=== PATIENT | female | born 1955 | race Caucasian/White ===

== ENCOUNTER 2018-08-16 04:19 | Emergency (ER) | payer BC ==
[2018-08-16 05:23] LABS: WHITE BLOOD COUNT 7.6 10^3/ul (4.8-10.8)
[2018-08-16 05:23] LABS: ADD MAN DIFF? NO; BASOPHILS % 0.5 % (0.0-2.0); EOSINOPHILS # 0.1 10^3/ul (0.0-0.5); EOSINOPHILS % 1.6 % (0.0-7.0); HEMATOCRIT 40.4 % (37.0-47.0); HEMOGLOBIN 13.4 g/dl (12.0-16.0); LYMPHOCYTES # 0.7 10^3/ul (0.8-2.9); LYMPHOCYTES % 9.3 % (15.0-51.0); MEAN CORPUSCULAR HEMOGLOBIN 30.3 pg (29.0-33.0); MEAN CORPUSCULAR HGB CONC 33.2 g/dl (32.0-37.0); MEAN CORPUSCULAR VOLUME 91.4 fl (82.0-101.0); MEAN PLATELET VOLUME 10.4 fl (7.4-10.4); MONOCYTE # 0.4 10^3/ul (0.3-0.9); MONOCYTES % 4.8 % (0.0-11.0); NEUTROPHIL # 6.3 10^3/ul (1.6-7.5); NEUTROPHILS % 83.4 % (39.0-77.0); PLATELET COUNT 290 10^3/UL (140-415); RED BLOOD COUNT 4.42 10^6/ul (4.20-5.40); RED CELL DISTRIBUTION WIDTH 12.8 % (11.5-14.5)
[2018-08-16 05:47] LABS: ALANINE AMINOTRANSFERASE 8 IU/L (13-69); ALBUMIN/GLOBULIN RATIO 1.29; ALKALINE PHOSPHATASE 58 IU/L (42-121); ANION GAP 10 (5-13); ASPARTATE AMINO TRANSFERASE 19 IU/L (15-46); BILIRUBIN,INDIRECT 0.5 mg/dl (0-1.1); BILIRUBIN,TOTAL 0.5 mg/dl (0.2-1.3); BLOOD UREA NITROGEN 10 mg/dl (7-20); CALCIUM 9.2 mg/dl (8.4-10.2); CARBON DIOXIDE 28 mmol/L (21-31); CHLORIDE 104 mmol/L (97-110); CREATININE 0.72 mg/dl (0.44-1.00); Estimated GFR > 60 mL/min (>60); GLUCOSE 119 mg/dl (70-220); LIPASE 75 U/L (23-300); POTASSIUM 4.2 mmol/L (3.5-5.1); SODIUM 142 mmol/L (135-144); TOTAL PROTEIN 7.1 g/dl (6.1-8.1)
[2018-08-16] MEDS: SOD CHLORIDE 0.9% 500 ML IV (05:52)
[2018-08-16] MEDS: morphine 4 MG/ML VIAL IV (06:35)
[2018-08-16] MEDS: ONDANSETRON 4 MG INJ IV (06:35)
[2018-08-16 06:39] LABS: ADD UMIC YES; UR ASCORBIC ACID NEGATIVE (NEGATIVE); UR BILIRUBIN (Dip) NEGATIVE (NEGATIVE); UR BLOOD (Dip) 1+ mg/dL (NEGATIVE); UR CLARITY SLIGHTLY CLOUDY (CLEAR); UR COLOR YELLOW (YELLOW); UR GLUCOSE (Dip) NEGATIVE (NEGATIVE); UR KETONES (Dip) NEGATIVE (NEGATIVE); UR LEUKOCYTE ESTERASE (Dip) NEGATIVE Leu/ul (NEGATIVE); UR MUCUS MANY /HPF (NONE SEEN); UR NITRITE (Dip) NEGATIVE (NEGATIVE); UR RBC 1 /HPF (0-5); UR SPECIFIC GRAVITY (Dip) 1.015 (1.003-1.030); UR SQUAMOUS EPITHELIAL CELL FEW /HPF (FEW); UR TOTAL PROTEIN (Dip) NEGATIVE (NEGATIVE); UR UROBILINOGEN (Dip) NEGATIVE (NEGATIVE); UR WBC 1 /HPF (0-5)
[2018-08-16 06:47] LABS: AMYLASE 72 U/L (11-123)
[2018-08-16 07:15] LABS: TROPONIN-I < 0.012 ng/ml (0.000-0.120)
[2018-08-16] MEDS: KETOROLAC 30 MG INJ IV (07:32)
[2018-08-16] MEDS: CIPROFLOXACIN 500 MG TAB PO (07:32)
[2018-08-16] MEDS: metroNIDAZOLE 500 MG TAB PO (07:44)
== END 2018-08-16 07:56 | disposition home or self-care (01) ==
LOC: E/R 04:19
DX: K52.9 Noninfective gastroenteritis and colitis, unspecified (principal)
CPT/HCPCS: 36415; 74176; 80053; 81001; 82150; 83690; 84484; 85025; 87086; 96374; 96375; 99285-25

== ENCOUNTER 2018-09-04 08:04 | Inpatient (IN) | payer BC ==
[2018-09-04] MEDS: ONDANSETRON 4 MG INJ IV (09:53)
[2018-09-04] MEDS: KETOROLAC 15 MG INJ IV (09:53)
[2018-09-04] MEDS: BELLADONNA/PHENOBARBITAL TAB PO (09:53)
[2018-09-04] MEDS: LIDOCAINE/MYLANTA 40 ML BTL PO (09:53)
[2018-09-04] MEDS: SOD CHLORIDE 0.9% 1,000 ML IV (09:53)
[2018-09-04 10:10] LABS: ADD MAN DIFF? NO
[2018-09-04 10:17] LABS: ADD UMIC NO; UR ASCORBIC ACID NEGATIVE (NEGATIVE); UR BILIRUBIN (Dip) NEGATIVE (NEGATIVE); UR BLOOD (Dip) NEGATIVE (NEGATIVE); UR CLARITY CLEAR (CLEAR); UR COLOR YELLOW (YELLOW); UR GLUCOSE (Dip) NEGATIVE (NEGATIVE); UR KETONES (Dip) TRACE mg/dL (NEGATIVE); UR LEUKOCYTE ESTERASE (Dip) NEGATIVE Leu/ul (NEGATIVE); UR NITRITE (Dip) NEGATIVE (NEGATIVE); UR SPECIFIC GRAVITY (Dip) 1.012 (1.003-1.030); UR TOTAL PROTEIN (Dip) NEGATIVE (NEGATIVE); UR UROBILINOGEN (Dip) NEGATIVE (NEGATIVE)
[2018-09-04 10:19] LABS: BASOPHIL # 0.1 10^3/ul (0.0-0.1); BASOPHILS % 1.1 % (0.0-2.0); EOSINOPHILS # 0.1 10^3/ul (0.0-0.5); EOSINOPHILS % 1.7 % (0.0-7.0); HEMATOCRIT 39.3 % (37.0-47.0); LYMPHOCYTES % 18.3 % (15.0-51.0); MEAN CORPUSCULAR HGB CONC 33.1 g/dl (32.0-37.0); MEAN CORPUSCULAR VOLUME 90.6 fl (82.0-101.0); MEAN PLATELET VOLUME 10.3 fl (7.4-10.4); MONOCYTE # 0.3 10^3/ul (0.3-0.9); MONOCYTES % 6.1 % (0.0-11.0); NEUTROPHIL # 3.9 10^3/ul (1.6-7.5); NEUTROPHILS % 72.6 % (39.0-77.0); PLATELET COUNT 303 10^3/UL (140-415); RED BLOOD COUNT 4.34 10^6/ul (4.20-5.40); RED CELL DISTRIBUTION WIDTH 13.1 % (11.5-14.5)
[2018-09-04 10:19] LABS: WHITE BLOOD COUNT 5.4 10^3/ul (4.8-10.8)
[2018-09-04 10:35] LABS: INR 0.93; PROTIME 12.6 Sec (11.9-14.9)
[2018-09-04 10:36] LABS: PARTIAL THROMBOPLASTIN TIME 31.2 Sec (23.0-35.0)
[2018-09-04 10:50] LABS: ALANINE AMINOTRANSFERASE 19 IU/L (13-69); ALBUMIN 4.5 g/dl (3.3-4.9); ALBUMIN/GLOBULIN RATIO 1.73; ALKALINE PHOSPHATASE 59 IU/L (42-121); ANION GAP 11 (5-13); ASPARTATE AMINO TRANSFERASE 19 IU/L (15-46); BILIRUBIN,INDIRECT 0.5 mg/dl (0-1.1); BILIRUBIN,TOTAL 0.5 mg/dl (0.2-1.3); BLOOD UREA NITROGEN 11 mg/dl (7-20); CALCIUM 9.9 mg/dl (8.4-10.2); CARBON DIOXIDE 27 mmol/L (21-31); CHLORIDE 100 mmol/L (97-110); CREATININE 0.73 mg/dl (0.44-1.00); Estimated GFR > 60 mL/min (>60); GLUCOSE 101 mg/dl (70-220); LIPASE 121 U/L (23-300); POTASSIUM 4.8 mmol/L (3.5-5.1); SODIUM 138 mmol/L (135-144); TOTAL PROTEIN 7.1 g/dl (6.1-8.1)
[2018-09-04 11:02] LABS: TROPONIN-I < 0.012 ng/ml (0.000-0.120)
[2018-09-04] MEDS: IOHEXOL 300MG/ML 150 ML BTL (11:40)
[2018-09-04] MEDS: SOD CHLORIDE 0.9% 100 ML (12:03)
[2018-09-04] MEDS ORDERED: DOCUSATE SODIUM 100 MG CAP PO (15:30)
[2018-09-04] MEDS ORDERED: MAGNESIUM HYDROXIDE 30ML CUP PO (15:30)
[2018-09-04] MEDS ORDERED: ZOLPIDEM 5 MG TAB PO (15:30)
[2018-09-04] MEDS ORDERED: NACL 0.9% 3 ML SYG IV (15:30)
[2018-09-04] MEDS ORDERED: morphine 2 MG INJ IV (15:30)
[2018-09-04] MEDS ORDERED: HYDROCODONE/APAP (5/325) TAB PO (15:30)
[2018-09-04] MEDS: NS + KCL 20 MEQ 1,000 ML IV (17:06)
[2018-09-04] MEDS: PIPER-TAZO 3.375 GM IV (PMX) 100 ML IVPB ×2 (18:27→23:21)
[2018-09-05] MEDS: NS + KCL 20 MEQ 1,000 ML IV ×4 (04:18→23:13)
[2018-09-05 05:53] LABS: ADD MAN DIFF? NO
[2018-09-05 05:56] LABS: BASOPHIL # 0.1 10^3/ul (0.0-0.1); EOSINOPHILS # 0.2 10^3/ul (0.0-0.5); EOSINOPHILS % 4.3 % (0.0-7.0); HEMATOCRIT 35.2 % (37.0-47.0); HEMOGLOBIN 11.6 g/dl (12.0-16.0); LYMPHOCYTES # 1.1 10^3/ul (0.8-2.9); MEAN CORPUSCULAR HEMOGLOBIN 30.3 pg (29.0-33.0); MEAN CORPUSCULAR VOLUME 91.9 fl (82.0-101.0); MEAN PLATELET VOLUME 10.5 fl (7.4-10.4); MONOCYTE # 0.3 10^3/ul (0.3-0.9); MONOCYTES % 8.4 % (0.0-11.0); NEUTROPHIL # 1.8 10^3/ul (1.6-7.5); PLATELET COUNT 232 10^3/UL (140-415); RED BLOOD COUNT 3.83 10^6/ul (4.20-5.40); RED CELL DISTRIBUTION WIDTH 13.1 % (11.5-14.5)
[2018-09-05 05:56] LABS: WHITE BLOOD COUNT 3.5 10^3/ul (4.8-10.8)
[2018-09-05] MEDS: PIPER-TAZO 3.375 GM IV (PMX) 100 ML IVPB ×4 (06:05→23:13)
[2018-09-05] MEDS: LEVOTHYROXINE 75 MCG TAB PO (06:20)
[2018-09-05 07:38] LABS: ANION GAP 8 (5-13); BLOOD UREA NITROGEN 9 mg/dl (7-20); CALCIUM 8.9 mg/dl (8.4-10.2); CARBON DIOXIDE 26 mmol/L (21-31); CHLORIDE 104 mmol/L (97-110); CREATININE 0.88 mg/dl (0.44-1.00); Estimated GFR > 60 mL/min (>60); GLUCOSE 88 mg/dl (70-220); MAGNESIUM 2.3 mg/dl (1.7-2.5); PHOSPHORUS 4.4 mg/dl (2.5-4.9); POTASSIUM 4.4 mmol/L (3.5-5.1); SODIUM 138 mmol/L (135-144)
[2018-09-05 09:15] LABS: HEMOGLOBIN A1C 5.4 % (0-5.9)
[2018-09-05] MEDS ORDERED: VITAMIN A & D 5 GM OINT PACKET TOP (12:14)
[2018-09-05] MEDS: ACETAMINOPHEN 325 MG TAB PO (12:15)
[2018-09-05] MEDS: IOHEXOL 14.3 MG(I)/ML (ADULT) BTL PO (18:00)
[2018-09-05] MEDS: morphine LIQ (10 MG/5 ML) CUP PO (18:16)
[2018-09-05] MEDS: ONDANSETRON 4 MG INJ IV (18:17)
[2018-09-06] MEDS: NS + KCL 20 MEQ 1,000 ML IV (03:44)
[2018-09-06] MEDS: PIPER-TAZO 3.375 GM IV (PMX) 100 ML IVPB ×3 (05:26→17:19)
[2018-09-06] MEDS: LEVOTHYROXINE 75 MCG TAB PO (06:44)
[2018-09-06] MEDS: SOD CHLORIDE 0.9% 100 ML (09:30)
[2018-09-06] MEDS: IOHEXOL 300MG/ML 30 ML BTL (09:30)
[2018-09-06] MEDS ORDERED: NA PHOSPHATE/BIPHOS 133 ML ENEMA PR (12:30)
[2018-09-06] MEDS: SENNA TAB PO ×2 (12:56→21:00)
[2018-09-06] MEDS: DOCUSATE SODIUM 100 MG CAP PO ×2 (12:56→21:00)
[2018-09-07] MEDS: PIPER-TAZO 3.375 GM IV (PMX) 100 ML IVPB ×5 (00:02→23:33)
[2018-09-07] MEDS: LEVOTHYROXINE 75 MCG TAB PO (06:32)
[2018-09-07] MEDS: POLYETHYLENE GLYCOL 17 GM PACKET PO (08:48)
[2018-09-07] MEDS: SENNA TAB PO (08:48)
[2018-09-07] MEDS: DOCUSATE SODIUM 100 MG CAP PO (08:48)
[2018-09-07 08:56] LABS: ADD MAN DIFF? NO
[2018-09-07 09:00] LABS: BASOPHIL # 0.1 10^3/ul (0.0-0.1); BASOPHILS % 1.5 % (0.0-2.0); EOSINOPHILS # 0.1 10^3/ul (0.0-0.5); EOSINOPHILS % 3.6 % (0.0-7.0); HEMATOCRIT 36.1 % (37.0-47.0); LYMPHOCYTES % 25.7 % (15.0-51.0); MEAN CORPUSCULAR HEMOGLOBIN 29.8 pg (29.0-33.0); MEAN CORPUSCULAR HGB CONC 33.2 g/dl (32.0-37.0); MEAN CORPUSCULAR VOLUME 89.6 fl (82.0-101.0); MEAN PLATELET VOLUME 10.8 fl (7.4-10.4); MONOCYTE # 0.3 10^3/ul (0.3-0.9); MONOCYTES % 8.5 % (0.0-11.0); NEUTROPHIL # 2.4 10^3/ul (1.6-7.5); NEUTROPHILS % 60.7 % (39.0-77.0); PLATELET COUNT 246 10^3/UL (140-415); RED BLOOD COUNT 4.03 10^6/ul (4.20-5.40); RED CELL DISTRIBUTION WIDTH 12.9 % (11.5-14.5)
[2018-09-07 09:00] LABS: WHITE BLOOD COUNT 3.9 10^3/ul (4.8-10.8)
[2018-09-07] MEDS: LIDOCAINE 1% (MPF) 5 ML VIAL SC ×2 (15:00)
[2018-09-08] MEDS: ACETAMINOPHEN 325 MG TAB PO (01:31)
[2018-09-08] MEDS: LEVOTHYROXINE 75 MCG TAB PO (06:06)
[2018-09-08] MEDS: PIPER-TAZO 3.375 GM IV (PMX) 100 ML IVPB ×2 (06:06→11:27)
[2018-09-08] MEDS: SENNA TAB PO (08:56)
[2018-09-08] MEDS: DOCUSATE SODIUM 100 MG CAP PO (08:56)
[2018-09-08] MEDS: POLYETHYLENE GLYCOL 17 GM PACKET PO (09:00)
== END 2018-09-08 12:27 | disposition home health service (06) | DRG 392 ==
LOC: E/R 08:04 → 5EC 13:05
PROC: 02H633Z Insertion of Infusion Device into Right Atrium, Percutaneous Approach (ICD-10-PCS; principal; 2018-09-07)
DX: K57.20 Diverticulitis of large intestine with perforation and abscess without bleeding (principal); K59.00 Constipation, unspecified
CPT/HCPCS: 36415; 36569; 71045; 74177; 76705; 76937; 80048; 80053; 81003; 83036; 83690; 83735; 84100; 84484; 85025; 85610; 85651; 85730; 93005; 96374; 96375; 99285-25

== ENCOUNTER → 2018-09-15 | Outpatient (CLI) | payer BC | END | disposition home or self-care (01) | LOC: U/S 07:39 | DX: K57.80 Diverticulitis of intestine, part unspecified, with perforation and abscess without bleeding (principal) | CPT/HCPCS: 76700 ==

== ENCOUNTER → 2018-09-22 | Outpatient (CLI) | payer BC ==
[2018-09-22] MEDS: SOD CHLORIDE 0.9% 100 ML (16:06)
[2018-09-22] MEDS: IOHEXOL 300MG/ML 150 ML BTL ×2 (16:06)
== END | disposition home or self-care (01) ==
LOC: C/S 12:22
DX: K57.92 Diverticulitis of intestine, part unspecified, without perforation or abscess without bleeding (principal); D17.71 Benign lipomatous neoplasm of kidney
CPT/HCPCS: 71045; 74177; 75984

== ENCOUNTER 2019-01-02 08:13 | Inpatient (IN) | payer BC ==
[~2019-01-02 08:13] MED LIST: DESFLURANE 15 MIN; EPHEDrine SULFATE 50 MG/5 ML SYG; PHENYLephrine (100 MCG/ML) 10ML SYG
[2019-01-02] MEDS ORDERED: DIPHENHYDRAMINE 50 MG INJ IV ×2 (11:30→19:00)
[2019-01-02] MEDS ORDERED: ONDANSETRON 4 MG INJ IV ×2 (11:30→19:00)
[2019-01-02] MEDS ORDERED: ALBUTEROL 0.083% (NEB) 2.5 MG/3 ML AMP HHN ×2 (11:30→19:00)
[2019-01-02] MEDS ORDERED: MEPERIDINE 25 MG INJ IV (11:30)
[2019-01-02] MEDS ORDERED: METOCLOPRAMIDE 10 MG INJ IV (11:30)
[2019-01-02] MEDS ORDERED: HYDROmorphONE 1 MG/5 ML IV SYRINGE IV ×3 (11:30)
[2019-01-02] MEDS ORDERED: FENTAnyl 50 MCG/ML VIAL IV ×5 (11:30→19:00)
[2019-01-02] MEDS ORDERED: MIDAZOLAM 1 MG/ML 2 ML INJ (11:50)
[2019-01-02] MEDS ORDERED: ROPIVACAINE 0.2% 20 ML VIAL (11:50)
[2019-01-02] MEDS ORDERED: PHENYLephrine (100 MCG/ML) 10ML SYG (12:38)
[2019-01-02] MEDS ORDERED: CEFAZOLIN 1 GM INJ (12:49)
[2019-01-02] MEDS ORDERED: metroNIDAZOLE 500 MG/NS (PMX) 100 ML IVPB (12:49)
[2019-01-02] MEDS ORDERED: SUCCINYLCHOLINE CHLORIDE 100 MG/5 ML SYG IV (13:13)
[2019-01-02] MEDS ORDERED: PROPOFOL 20 ML (13:13)
[2019-01-02] MEDS ORDERED: ROCURONIUM 50 MG INJ (13:13)
[2019-01-02] MEDS ORDERED: LIDOCAINE 100 MG SYRINGE (13:13)
[2019-01-02] MEDS ORDERED: morphine SULFATE/PF (10 MG/10 ML) INJ (13:20)
[2019-01-02] MEDS: BUPIVACAINE 0.5% (SDV) 30 ML INJ (13:30)
[2019-01-02] MEDS: LIDOCAINE 1%/EPI (1:100,000) (MDV) 20 ML (13:31)
[2019-01-02] MEDS ORDERED: METHYLENE BLUE 50 MG/10 ML AMPUL (15:43)
[2019-01-02] MEDS ORDERED: NA BICARBONATE 8.4% 50 ML SYG (16:45)
[2019-01-02 16:47] LABS: AADO2 Arterial 153.4 mmHg (7.0-24.0); Arterial Blood Gas Oxygen Sat 99.6 mmHG (95.0-98.0); Arterial COHb 0.3 % (0.0-3.0); Arterial Fraction of Oxyhgb 98.8 % (93.0-99.0); Arterial HCO3 17.7 mmol/L (22.0-26.0); Arterial MetHb 0.5 % (0.0-1.5); Arterial pCO2 57.3 mmhg (35-45); MODE VENT - AC; Site A-Line; Temperature 34.4 C
[2019-01-02] MEDS ORDERED: ALBUMIN HUMAN 5% 250 ML ×2 (16:47→17:20)
[2019-01-02 16:50] LABS: ADD MAN DIFF? NO
[2019-01-02 16:54] LABS: WHITE BLOOD COUNT 16.2 10^3/ul (4.8-10.8)
[2019-01-02 16:54] LABS: BASOPHIL # 0.1 10^3/ul (0.0-0.1); BASOPHILS % 0.4 % (0.0-2.0); EOSINOPHILS % 0.2 % (0.0-7.0); HEMATOCRIT 35.7 % (37.0-47.0); HEMOGLOBIN 11.4 g/dl (12.0-16.0); LYMPHOCYTES # 1.6 10^3/ul (0.8-2.9); LYMPHOCYTES % 9.9 % (15.0-51.0); MEAN CORPUSCULAR HEMOGLOBIN 30.3 pg (29.0-33.0); MEAN CORPUSCULAR HGB CONC 31.9 g/dl (32.0-37.0); MEAN CORPUSCULAR VOLUME 94.9 fl (82.0-101.0); MEAN PLATELET VOLUME 11.2 fl (7.4-10.4); MONOCYTE # 1.2 10^3/ul (0.3-0.9); MONOCYTES % 7.2 % (0.0-11.0); NEUTROPHIL # 13.3 10^3/ul (1.6-7.5); NEUTROPHILS % 81.9 % (39.0-77.0); PLATELET COUNT 138 10^3/UL (140-415); RED BLOOD COUNT 3.76 10^6/ul (4.20-5.40); RED CELL DISTRIBUTION WIDTH 12.8 % (11.5-14.5)
[2019-01-02 17:01] LABS: HOLD TRANSMISSIONS 1
[2019-01-02 17:28] LABS: AADO2 Arterial 134.8 mmHg (7.0-24.0); Arterial Base Excess -6.3 mmol/L (-3.0-3); Arterial Blood Gas Oxygen Sat 99.3 mmHG (95.0-98.0); Arterial COHb 0.2 % (0.0-3.0); Arterial Fraction of Oxyhgb 98.7 % (93.0-99.0); Arterial HCO3 18.2 mmol/L (22.0-26.0); Arterial MetHb 0.4 % (0.0-1.5); Arterial pCO2 30.1 mmhg (35-45); Blood Gas Low PEEP Setting 0 cmH2O; MODE VENT - AC; Site A-Line
[2019-01-02 17:41] LABS: LACTIC ACID 1.4 mmol/L (0.5-2.0)
[2019-01-02 17:51] LABS: ALANINE AMINOTRANSFERASE 32 IU/L (13-69); ALBUMIN 2.8 g/dl (3.3-4.9); ALBUMIN/GLOBULIN RATIO 1.47; ALKALINE PHOSPHATASE 40 IU/L (42-121); ANION GAP 10 (5-13); ASPARTATE AMINO TRANSFERASE 21 IU/L (15-46); BILIRUBIN,INDIRECT 0.2 mg/dl (0-1.1); BILIRUBIN,TOTAL 0.2 mg/dl (0.2-1.3); BLOOD UREA NITROGEN 11 mg/dl (7-20); CARBON DIOXIDE 17 mmol/L (21-31); CHLORIDE 112 mmol/L (97-110); CREATININE 0.62 mg/dl (0.44-1.00); Estimated GFR > 60 mL/min (>60); GLUCOSE 95 mg/dl (70-220); MAGNESIUM 1.7 mg/dl (1.7-2.5); PHOSPHORUS 4.5 mg/dl (2.5-4.9); POTASSIUM 4.1 mmol/L (3.5-5.1); SODIUM 139 mmol/L (135-144); TOTAL PROTEIN 4.7 g/dl (6.1-8.1)
[2019-01-02] MEDS ORDERED: SUGAMMADEX SODIUM 200 MG/2 ML VIAL IV (17:52)
[2019-01-02 18:02] LABS: TROPONIN-I < 0.012 ng/ml (0.000-0.120)
[2019-01-02 18:04] LABS: CALCIUM 7.7 mg/dl (8.4-10.2)
[2019-01-02 18:14] LABS: INR 1.18; PROTIME 15.1 Sec (11.9-14.9); PT RATIO 1.2
[2019-01-02 18:15] LABS: PARTIAL THROMBOPLASTIN TIME 31.5 Sec (23.0-35.0); THROMBIN TIME 16.7 SEC (13.8-19.1)
[2019-01-02 18:17] LABS: LIPASE 65 U/L (23-300)
[2019-01-02 18:17] LABS: AMYLASE 52 U/L (11-123)
[2019-01-02] MEDS ORDERED: FLUMAZENIL 0.5 MG INJ (18:17)
[2019-01-02 18:26] LABS: D-DIMER 2197.07 ng/ml (<460)
[2019-01-02] MEDS ORDERED: ALBUMIN HUMAN 5% 250 ML IV (19:00)
[2019-01-02] MEDS ORDERED: IPRATROPIUM (NEB) 0.5 MG/2.5 ML AMP HHN (19:00)
[2019-01-02] MEDS ORDERED: KETOROLAC 30 MG INJ IV (19:00)
[2019-01-02] MEDS ORDERED: LORAZEPAM 2 MG INJ IV (19:00)
[2019-01-02] MEDS ORDERED: morphine 2 MG INJ IV (19:00)
[2019-01-02] MEDS ORDERED: HYDROmorphONE 0.5 MG/0.5 ML SYG IV ×3 (19:00)
[2019-01-02] MEDS ORDERED: hydrALAzine 20 MG INJ IV (19:00)
[2019-01-02] MEDS ORDERED: LABETALOL HCL 20MG INJ IV (19:00)
[2019-01-02] MEDS ORDERED: ATROPINE 1 MG/10 ML SYRINGE IV (19:00)
[2019-01-02] MEDS: D5W-0.45 NACL + KCL 20 MEQ 1,000 ML IV (19:30)
[2019-01-02] MEDS: PROPOFOL 100 ML IV (19:31)
[2019-01-02] MEDS: SOD CHLORIDE 0.9% 100 ML (19:54)
[2019-01-02] MEDS: IOHEXOL 100 ML (19:54)
[2019-01-02] MEDS: IOHEXOL 350MG/ML 50 ML BTL (19:54)
[2019-01-02 20:17] LABS: ABNORMAL IP MESSAGE 1; HEMOGLOBIN 10.8 g/dl (12.0-16.0); MEAN CORPUSCULAR HEMOGLOBIN 29.8 pg (29.0-33.0); MEAN CORPUSCULAR HGB CONC 31.8 g/dl (32.0-37.0); MEAN CORPUSCULAR VOLUME 93.9 fl (82.0-101.0); MEAN PLATELET VOLUME 10.6 fl (7.4-10.4); PLATELET COUNT 97 10^3/UL (140-415); RED BLOOD COUNT 3.62 10^6/ul (4.20-5.40); RED CELL DISTRIBUTION WIDTH 12.8 % (11.5-14.5)
[2019-01-02 20:17] LABS: WHITE BLOOD COUNT 9.7 10^3/ul (4.8-10.8)
[2019-01-02 20:20] LABS: ADD MAN DIFF? YES; POSITIVE DIFF @See below
[2019-01-02 20:26] LABS: ALANINE AMINOTRANSFERASE 20 IU/L (13-69); ALBUMIN 3.3 g/dl (3.3-4.9); ALBUMIN/GLOBULIN RATIO 1.65; ALKALINE PHOSPHATASE 43 IU/L (42-121); ANION GAP 11 (5-13); ASPARTATE AMINO TRANSFERASE 24 IU/L (15-46); BILIRUBIN,INDIRECT 0.4 mg/dl (0-1.1); BILIRUBIN,TOTAL 0.4 mg/dl (0.2-1.3); BLOOD UREA NITROGEN 10 mg/dl (7-20); CALCIUM 8.9 mg/dl (8.4-10.2); CARBON DIOXIDE 17 mmol/L (21-31); CHLORIDE 111 mmol/L (97-110); CREATININE 0.62 mg/dl (0.44-1.00); Estimated GFR > 60 mL/min (>60); GLUCOSE 125 mg/dl (70-220); SODIUM 139 mmol/L (135-144); TOTAL PROTEIN 5.3 g/dl (6.1-8.1)
[2019-01-02] MEDS: MAGNESIUM SULFATE 2 GM/50 ML 50 ML IVPB (20:42)
[2019-01-02] MEDS: CEFAZOLIN 2 GM/50 ML (PMX) 50 ML IVPB (20:42)
[2019-01-02] MEDS: metroNIDAZOLE 500 MG/NS (PMX) 100 ML IVPB (20:43)
[2019-01-02 20:44] LABS: AADO2 Arterial 163.4 mmHg (7.0-24.0); Arterial Base Excess -9.3 mmol/L (-3.0-3); Arterial Blood Gas Oxygen Sat 99.3 mmHG (95.0-98.0); Arterial COHb 0.1 % (0.0-3.0); Arterial Fraction of Oxyhgb 98.8 % (93.0-99.0); Arterial MetHb 0.4 % (0.0-1.5); Arterial pCO2 44.7 mmhg (35-45); MODE VENT - AC; Site A-Line
[2019-01-02] MEDS: FENTAnyl (DRIP) 1000 mcg/100mL 100 ML IV (21:54)
[2019-01-02 22:14] LABS: BAND NEUTROPHILS #M 1.2 10^3/ul (0.0-0.6); BAND NEUTROPHILS % (M) 13 % (0-4); LYMPHOCYTES #M 0.3 10^3/ul (0.8-2.9); LYMPHOCYTES % (M) 4 % (15-51); MONOCYTE #M 0.2 10^3/ul (0.3-0.9); MONOCYTES % (M) 3 % (0-11); PLATELET ESTIMATE DECREASED; REACTIVE LYMPHOCYTES% (M) 1 % (0-0); SEG NEUT #M 7.8 10^3/ul (1.6-7.5); SEGMENTED NEUTROPHILS (M) % 79 % (39-77); SMUDGE%M 38 % (0-0)
[2019-01-02 22:47] LABS: HEMATOCRIT 32.4 % (37.0-47.0); HEMOGLOBIN 10.5 g/dl (12.0-16.0)
[2019-01-02] MEDS: ALBUMIN HUMAN 25% 100 ML IV ×2 (23:00→23:57)
[2019-01-02] MEDS: MEROPENEM 1 GM/50ML(PMX) 50 ML IVPB (23:55)
[2019-01-03] MEDS: PROPOFOL 100 ML IV (00:20)
[2019-01-03 01:22] LABS: ADD UMIC YES; UR ASCORBIC ACID NEGATIVE (NEGATIVE); UR BILIRUBIN (Dip) NEGATIVE (NEGATIVE); UR BLOOD (Dip) 2+ mg/dL (NEGATIVE); UR CLARITY CLEAR (CLEAR); UR COLOR STRAW (YELLOW); UR GLUCOSE (Dip) 1+ mg/dL (NEGATIVE); UR KETONES (Dip) 2+ mg/dL (NEGATIVE); UR LEUKOCYTE ESTERASE (Dip) NEGATIVE Leu/ul (NEGATIVE); UR MUCUS FEW /HPF (NONE SEEN); UR NITRITE (Dip) NEGATIVE (NEGATIVE); UR RBC 9 /HPF (0-5); UR SPECIFIC GRAVITY (Dip) 1.059 (1.003-1.030); UR TOTAL PROTEIN (Dip) NEGATIVE (NEGATIVE); UR UROBILINOGEN (Dip) NEGATIVE (NEGATIVE); UR WBC 1 /HPF (0-5)
[2019-01-03 01:41] LABS: TROPONIN-I < 0.012 ng/ml (0.000-0.120)
[2019-01-03] MEDS: SOD CHLORIDE 0.9% 1,000 ML IV ×2 (02:30→06:50)
[2019-01-03 04:55] LABS: AADO2 Arterial 58.4 mmHg (7.0-24.0); Arterial Base Excess -3.9 mmol/L (-3.0-3); Arterial Blood Gas Oxygen Sat 98.5 mmHG (95.0-98.0); Arterial COHb 0.1 % (0.0-3.0); Arterial Fraction of Oxyhgb 97.9 % (93.0-99.0); Arterial HCO3 20.2 mmol/L (22.0-26.0); Arterial MetHb 0.5 % (0.0-1.5); MODE VENT - AC; Site A-Line
[2019-01-03] MEDS: D5W-0.45 NACL + KCL 20 MEQ 1,000 ML IV ×2 (04:56→13:28)
[2019-01-03 05:19] LABS: ADD MAN DIFF? NO
[2019-01-03 05:25] LABS: WHITE BLOOD COUNT 7.4 10^3/ul (4.8-10.8)
[2019-01-03 05:25] LABS: ABNORMAL IP MESSAGE 1; BASOPHILS % 0.3 % (0.0-2.0); HEMATOCRIT 28.3 % (37.0-47.0); HEMOGLOBIN 9.6 g/dl (12.0-16.0); LYMPHOCYTES # 0.4 10^3/ul (0.8-2.9); MEAN CORPUSCULAR HEMOGLOBIN 30.7 pg (29.0-33.0); MEAN CORPUSCULAR HGB CONC 33.9 g/dl (32.0-37.0); MEAN CORPUSCULAR VOLUME 90.4 fl (82.0-101.0); MEAN PLATELET VOLUME 10.9 fl (7.4-10.4); MONOCYTE # 0.4 10^3/ul (0.3-0.9); MONOCYTES % 5.4 % (0.0-11.0); NEUTROPHIL # 6.6 10^3/ul (1.6-7.5); NEUTROPHILS % 88.9 % (39.0-77.0); PLATELET COUNT 108 10^3/UL (140-415); RED BLOOD COUNT 3.13 10^6/ul (4.20-5.40); RED CELL DISTRIBUTION WIDTH 12.8 % (11.5-14.5)
[2019-01-03] MEDS: MEROPENEM 1 GM/50ML(PMX) 50 ML IVPB ×3 (05:41→22:19)
[2019-01-03] MEDS: PANTOPRAZOLE 40 MG INJ IV (05:41)
[2019-01-03] MEDS: LEVOTHYROXINE 100 MCG VIAL IV (05:41)
[2019-01-03 06:09] LABS: ALANINE AMINOTRANSFERASE 24 IU/L (13-69); ALBUMIN 2.9 g/dl (3.3-4.9); ALBUMIN/GLOBULIN RATIO 1.52; ALKALINE PHOSPHATASE 28 IU/L (42-121); ANION GAP 9 (5-13); ASPARTATE AMINO TRANSFERASE 22 IU/L (15-46); BILIRUBIN,INDIRECT 0.2 mg/dl (0-1.1); BILIRUBIN,TOTAL 0.2 mg/dl (0.2-1.3); BLOOD UREA NITROGEN 9 mg/dl (7-20); CALCIUM 8.5 mg/dl (8.4-10.2); CARBON DIOXIDE 21 mmol/L (21-31); CHLORIDE 107 mmol/L (97-110); CREATININE 0.57 mg/dl (0.44-1.00); Estimated GFR > 60 mL/min (>60); GLUCOSE 212 mg/dl (70-220); POTASSIUM 4.4 mmol/L (3.5-5.1); SODIUM 137 mmol/L (135-144); TOTAL PROTEIN 4.8 g/dl (6.1-8.1)
[2019-01-03 06:23] LABS: LACTIC ACID 2.4 mmol/L (0.5-2.0)
[2019-01-03 06:25] LABS: POSITIVE DIFF @See below
[2019-01-03 06:31] LABS: AMYLASE 49 U/L (11-123)
[2019-01-03 06:31] LABS: LIPASE 39 U/L (23-300)
[2019-01-03 07:02] LABS: TROPONIN-I < 0.012 ng/ml (0.000-0.120)
[2019-01-03 09:46] LABS: AADO2 Arterial 37.7 mmHg (7.0-24.0); Arterial Blood Gas Oxygen Sat 97.8 mmHG (95.0-98.0); Arterial COHb 0.1 % (0.0-3.0); Arterial Fraction of Oxyhgb 97.2 % (93.0-99.0); Arterial HCO3 21.4 mmol/L (22.0-26.0); Arterial MetHb 0.5 % (0.0-1.5); Arterial pCO2 35.8 mmhg (35-45); Blood Gas PS 10; MODE VENT - CPAP; Site A-Line
[2019-01-03] MEDS: HYDROmorphONE 0.5 MG/0.5 ML SYG IV ×3 (11:17→20:44)
[2019-01-03 11:55] LABS: ANISOCYTOSIS 1+ (0-0); BAND NEUTROPHILS #M 0.8 10^3/ul (0.0-0.6); BAND NEUTROPHILS % (M) 11 % (0-4); LYMPHOCYTES #M 0.3 10^3/ul (0.8-2.9); LYMPHOCYTES % (M) 5 % (15-51); MICROCYTOSIS 1+ (0-0); MONOCYTE #M 0.3 10^3/ul (0.3-0.9); MONOCYTES % (M) 5 % (0-11); PLATELET ESTIMATE DECREASED; SEG NEUT #M 5.9 10^3/ul (1.6-7.5); SEGMENTED NEUTROPHILS (M) % 79 % (39-77); SMUDGE%M 3 % (0-0)
[2019-01-03 12:53] LABS: TROPONIN-I < 0.012 ng/ml (0.000-0.120)
[2019-01-03 14:19] LABS: LACTIC ACID 0.7 mmol/L (0.5-2.0)
[2019-01-03 20:00] LABS: TROPONIN-I < 0.012 ng/ml (0.000-0.120)
[2019-01-03] MEDS: LACTATED RINGER'S 1,000 ML IV (21:21)
[2019-01-04] MEDS: D5W-0.45 NACL + KCL 20 MEQ 1,000 ML IV ×3 (00:06→22:54)
[2019-01-04] MEDS: ONDANSETRON 4 MG INJ IV ×3 (02:45→22:46)
[2019-01-04] MEDS: HYDROmorphONE 0.5 MG/0.5 ML SYG IV ×5 (04:39→22:17)
[2019-01-04 05:27] LABS: WHITE BLOOD COUNT 7.4 10^3/ul (4.8-10.8)
[2019-01-04 05:27] LABS: ABNORMAL IP MESSAGE 1; ADD MAN DIFF? NO; BASOPHILS % 0.3 % (0.0-2.0); EOSINOPHILS % 0.4 % (0.0-7.0); HEMATOCRIT 28.8 % (37.0-47.0); HEMOGLOBIN 9.8 g/dl (12.0-16.0); LYMPHOCYTES # 0.4 10^3/ul (0.8-2.9); MEAN CORPUSCULAR HEMOGLOBIN 31.3 pg (29.0-33.0); MEAN PLATELET VOLUME 11.3 fl (7.4-10.4); MONOCYTE # 0.6 10^3/ul (0.3-0.9); MONOCYTES % 7.6 % (0.0-11.0); NEUTROPHIL # 6.4 10^3/ul (1.6-7.5); NEUTROPHILS % 86.3 % (39.0-77.0); PLATELET COUNT 99 10^3/UL (140-415); RED BLOOD COUNT 3.13 10^6/ul (4.20-5.40); RED CELL DISTRIBUTION WIDTH 13.2 % (11.5-14.5)
[2019-01-04 05:51] LABS: ANION GAP 5 (5-13); BLOOD UREA NITROGEN 5 mg/dl (7-20); CALCIUM 7.8 mg/dl (8.4-10.2); CARBON DIOXIDE 25 mmol/L (21-31); CHLORIDE 104 mmol/L (97-110); CREATININE 0.54 mg/dl (0.44-1.00); Estimated GFR > 60 mL/min (>60); GLUCOSE 128 mg/dl (70-220); MAGNESIUM 1.9 mg/dl (1.7-2.5); PHOSPHORUS 2.3 mg/dl (2.5-4.9); SODIUM 134 mmol/L (135-144)
[2019-01-04] MEDS: PANTOPRAZOLE 40 MG INJ IV (05:53)
[2019-01-04] MEDS: LEVOTHYROXINE 100 MCG VIAL IV (05:53)
[2019-01-04] MEDS: MEROPENEM 1 GM/50ML(PMX) 50 ML IVPB ×3 (05:56→22:21)
[2019-01-04 06:00] LABS: POSITIVE DIFF @See below
[2019-01-04] MEDS: POTASSIUM PHOSPHATE 30 MM in SOD CHLORIDE 0.9% 250 ML IVPB (09:22)
[2019-01-04] MEDS: METOCLOPRAMIDE 10 MG INJ IV (17:47)
[2019-01-04] MEDS: FAMOTIDINE 20 MG INJ IV (22:17)
[2019-01-05] MEDS: LEVOTHYROXINE 100 MCG VIAL IV (06:23)
[2019-01-05] MEDS: ONDANSETRON 4 MG INJ IV ×2 (06:23→13:05)
[2019-01-05] MEDS: MEROPENEM 1 GM/50ML(PMX) 50 ML IVPB ×3 (06:24→20:12)
[2019-01-05] MEDS: HYDROmorphONE 0.5 MG/0.5 ML SYG IV ×3 (06:24→17:39)
[2019-01-05] MEDS: D5W-0.45 NACL + KCL 20 MEQ 1,000 ML IV ×4 (06:56→20:12)
[2019-01-05 07:22] LABS: ADD MAN DIFF? NO
[2019-01-05 07:24] LABS: WHITE BLOOD COUNT 4.8 10^3/ul (4.8-10.8)
[2019-01-05 07:24] LABS: ABNORMAL IP MESSAGE 1; BASOPHILS % 0.4 % (0.0-2.0); EOSINOPHILS # 0.1 10^3/ul (0.0-0.5); EOSINOPHILS % 1.5 % (0.0-7.0); HEMATOCRIT 29.3 % (37.0-47.0); HEMOGLOBIN 9.6 g/dl (12.0-16.0); LYMPHOCYTES # 0.5 10^3/ul (0.8-2.9); LYMPHOCYTES % 11.3 % (15.0-51.0); MEAN CORPUSCULAR HGB CONC 32.8 g/dl (32.0-37.0); MEAN CORPUSCULAR VOLUME 91.6 fl (82.0-101.0); MEAN PLATELET VOLUME 11.4 fl (7.4-10.4); MONOCYTE # 0.4 10^3/ul (0.3-0.9); MONOCYTES % 7.9 % (0.0-11.0); NEUTROPHIL # 3.8 10^3/ul (1.6-7.5); NEUTROPHILS % 78.7 % (39.0-77.0); PLATELET COUNT 110 10^3/UL (140-415); RED CELL DISTRIBUTION WIDTH 12.4 % (11.5-14.5)
[2019-01-05 07:28] LABS: POSITIVE DIFF @See below
[2019-01-05 07:48] LABS: ANION GAP 3 (5-13); BLOOD UREA NITROGEN 4 mg/dl (7-20); CALCIUM 8.3 mg/dl (8.4-10.2); CARBON DIOXIDE 28 mmol/L (21-31); CHLORIDE 105 mmol/L (97-110); CREATININE 0.53 mg/dl (0.44-1.00); Estimated GFR > 60 mL/min (>60); GLUCOSE 127 mg/dl (70-220); POTASSIUM 4.3 mmol/L (3.5-5.1); SODIUM 136 mmol/L (135-144)
[2019-01-05] MEDS: FAMOTIDINE 20 MG INJ IV ×2 (08:28→20:12)
[2019-01-05] MEDS: METOCLOPRAMIDE 10 MG INJ IV ×2 (09:24→17:38)
[2019-01-05 13:42] LABS: ADD UMIC YES; UR ASCORBIC ACID NEGATIVE (NEGATIVE); UR BILIRUBIN (Dip) NEGATIVE (NEGATIVE); UR BLOOD (Dip) 1+ mg/dL (NEGATIVE); UR CLARITY CLEAR (CLEAR); UR COLOR COLORLESS (YELLOW); UR GLUCOSE (Dip) NEGATIVE (NEGATIVE); UR KETONES (Dip) NEGATIVE (NEGATIVE); UR LEUKOCYTE ESTERASE (Dip) NEGATIVE Leu/ul (NEGATIVE); UR NITRITE (Dip) NEGATIVE (NEGATIVE); UR RBC 5 /HPF (0-5); UR SPECIFIC GRAVITY (Dip) 1.005 (1.003-1.030); UR TOTAL PROTEIN (Dip) NEGATIVE (NEGATIVE); UR UROBILINOGEN (Dip) NEGATIVE (NEGATIVE); UR WBC 1 /HPF (0-5)
[2019-01-06] MEDS: D5W-0.45 NACL + KCL 20 MEQ 1,000 ML IV ×2 (05:11→21:09)
[2019-01-06] MEDS: LEVOTHYROXINE 100 MCG VIAL IV (05:12)
[2019-01-06] MEDS: MEROPENEM 1 GM/50ML(PMX) 50 ML IVPB ×3 (05:25→21:09)
[2019-01-06 08:17] LABS: ADD MAN DIFF? NO
[2019-01-06 08:23] LABS: ABNORMAL IP MESSAGE 1; BASOPHILS % 0.3 % (0.0-2.0); EOSINOPHILS # 0.2 10^3/ul (0.0-0.5); EOSINOPHILS % 4.4 % (0.0-7.0); HEMATOCRIT 31.9 % (37.0-47.0); HEMOGLOBIN 10.6 g/dl (12.0-16.0); LYMPHOCYTES # 0.5 10^3/ul (0.8-2.9); LYMPHOCYTES % 12.6 % (15.0-51.0); MEAN CORPUSCULAR HEMOGLOBIN 30.4 pg (29.0-33.0); MEAN CORPUSCULAR HGB CONC 33.2 g/dl (32.0-37.0); MEAN CORPUSCULAR VOLUME 91.4 fl (82.0-101.0); MONOCYTE # 0.3 10^3/ul (0.3-0.9); MONOCYTES % 8.8 % (0.0-11.0); NEUTROPHIL # 2.7 10^3/ul (1.6-7.5); NEUTROPHILS % 73.6 % (39.0-77.0); PLATELET COUNT 146 10^3/UL (140-415); RED BLOOD COUNT 3.49 10^6/ul (4.20-5.40); RED CELL DISTRIBUTION WIDTH 12.3 % (11.5-14.5)
[2019-01-06 08:23] LABS: WHITE BLOOD COUNT 3.6 10^3/ul (4.8-10.8)
[2019-01-06 08:27] LABS: POSITIVE DIFF @See below
[2019-01-06 08:53] LABS: ANION GAP 6 (5-13); BLOOD UREA NITROGEN 4 mg/dl (7-20); CALCIUM 8.6 mg/dl (8.4-10.2); CARBON DIOXIDE 29 mmol/L (21-31); CHLORIDE 105 mmol/L (97-110); CREATININE 0.63 mg/dl (0.44-1.00); Estimated GFR > 60 mL/min (>60); GLUCOSE 109 mg/dl (70-220); MAGNESIUM 2.2 mg/dl (1.7-2.5); PHOSPHORUS 1.9 mg/dl (2.5-4.9); POTASSIUM 4.5 mmol/L (3.5-5.1); SODIUM 140 mmol/L (135-144)
[2019-01-06] MEDS: FAMOTIDINE 20 MG INJ IV ×2 (08:55→21:09)
[2019-01-07] MEDS: LEVOTHYROXINE 100 MCG VIAL IV (06:25)
[2019-01-07] MEDS: MEROPENEM 1 GM/50ML(PMX) 50 ML IVPB (06:26)
[2019-01-07] MEDS: ACETAMINOPHEN 325 MG TAB PO ×3 (07:44→19:43)
[2019-01-07] MEDS: D5W-0.45 NACL + KCL 20 MEQ 1,000 ML IV ×2 (07:46→17:49)
[2019-01-07 08:13] LABS: ADD MAN DIFF? NO
[2019-01-07 08:26] LABS: BASOPHILS % 0.5 % (0.0-2.0); EOSINOPHILS # 0.2 10^3/ul (0.0-0.5); EOSINOPHILS % 5.5 % (0.0-7.0); HEMATOCRIT 34.6 % (37.0-47.0); HEMOGLOBIN 11.4 g/dl (12.0-16.0); LYMPHOCYTES # 0.6 10^3/ul (0.8-2.9); LYMPHOCYTES % 16.2 % (15.0-51.0); MEAN CORPUSCULAR HEMOGLOBIN 29.8 pg (29.0-33.0); MEAN CORPUSCULAR HGB CONC 32.9 g/dl (32.0-37.0); MEAN CORPUSCULAR VOLUME 90.6 fl (82.0-101.0); MEAN PLATELET VOLUME 10.3 fl (7.4-10.4); MONOCYTE # 0.5 10^3/ul (0.3-0.9); MONOCYTES % 12.8 % (0.0-11.0); NEUTROPHIL # 2.5 10^3/ul (1.6-7.5); NEUTROPHILS % 64.7 % (39.0-77.0); PLATELET COUNT 206 10^3/UL (140-415); RED BLOOD COUNT 3.82 10^6/ul (4.20-5.40); RED CELL DISTRIBUTION WIDTH 12.2 % (11.5-14.5)
[2019-01-07 08:26] LABS: WHITE BLOOD COUNT 3.8 10^3/ul (4.8-10.8)
[2019-01-07 08:46] LABS: ANION GAP 9 (5-13); BLOOD UREA NITROGEN 4 mg/dl (7-20); CALCIUM 8.7 mg/dl (8.4-10.2); CARBON DIOXIDE 27 mmol/L (21-31); CHLORIDE 103 mmol/L (97-110); CREATININE 0.54 mg/dl (0.44-1.00); Estimated GFR > 60 mL/min (>60); GLUCOSE 119 mg/dl (70-220); POTASSIUM 4.1 mmol/L (3.5-5.1); SODIUM 139 mmol/L (135-144)
[2019-01-07] MEDS: FAMOTIDINE 20 MG INJ IV ×2 (10:22→21:03)
[2019-01-08] MEDS: ACETAMINOPHEN 325 MG TAB PO ×3 (01:18→19:46)
[2019-01-08] MEDS: D5W-0.45 NACL + KCL 20 MEQ 1,000 ML IV ×3 (03:41→15:10)
[2019-01-08] MEDS: LEVOTHYROXINE 100 MCG VIAL IV (06:41)
[2019-01-08 07:12] LABS: ADD MAN DIFF? NO
[2019-01-08 07:21] LABS: EOSINOPHILS # 0.3 10^3/ul (0.0-0.5); EOSINOPHILS % 7.5 % (0.0-7.0); HEMATOCRIT 33.6 % (37.0-47.0); HEMOGLOBIN 11.1 g/dl (12.0-16.0); LYMPHOCYTES # 0.8 10^3/ul (0.8-2.9); LYMPHOCYTES % 18.5 % (15.0-51.0); MEAN CORPUSCULAR HEMOGLOBIN 29.5 pg (29.0-33.0); MEAN CORPUSCULAR VOLUME 89.4 fl (82.0-101.0); MEAN PLATELET VOLUME 10.3 fl (7.4-10.4); MONOCYTE # 0.5 10^3/ul (0.3-0.9); MONOCYTES % 10.8 % (0.0-11.0); NEUTROPHIL # 2.6 10^3/ul (1.6-7.5); PLATELET COUNT 216 10^3/UL (140-415); RED BLOOD COUNT 3.76 10^6/ul (4.20-5.40); RED CELL DISTRIBUTION WIDTH 12.5 % (11.5-14.5)
[2019-01-08 07:21] LABS: WHITE BLOOD COUNT 4.2 10^3/ul (4.8-10.8)
[2019-01-08 07:53] LABS: IRON < 10 ug/dl (35-150)
[2019-01-08 07:55] LABS: ANION GAP 8 (5-13); BLOOD UREA NITROGEN 4 mg/dl (7-20); CALCIUM 8.7 mg/dl (8.4-10.2); CARBON DIOXIDE 26 mmol/L (21-31); CHLORIDE 105 mmol/L (97-110); CREATININE 0.53 mg/dl (0.44-1.00); Estimated GFR > 60 mL/min (>60); GLUCOSE 106 mg/dl (70-220); MAGNESIUM 2.3 mg/dl (1.7-2.5); PHOSPHORUS 3.5 mg/dl (2.5-4.9); POTASSIUM 4.3 mmol/L (3.5-5.1); SODIUM 139 mmol/L (135-144)
[2019-01-08 08:00] LABS: TOTAL IRON BINDING CAPACITY 220 ug/dl (241-421)
[2019-01-08] MEDS: FAMOTIDINE 20 MG INJ IV (08:28)
[2019-01-08 13:40] LABS: FREE T4 (FREE THYROXINE) 0.94 ng/dl (0.78-2.44)
[2019-01-08] MEDS: SOD FERRIC GLUC COMPLX 125 MG in SOD CHLORIDE 0.9% 100 ML IVPB (15:09)
[2019-01-09] MEDS: ACETAMINOPHEN 325 MG TAB PO (06:02)
[2019-01-09] MEDS: LEVOTHYROXINE 75 MCG TAB PO (06:02)
[2019-01-09] MEDS: FAMOTIDINE 20 MG TAB PO (08:27)
== END 2019-01-09 18:29 | disposition home health service (06) | DRG 330 ==
LOC: REC 08:13 → TEL 01-04 14:59 → ICU 18:45
PROVIDERS: Surgery
PROC: 0DTN4ZZ Resection of Sigmoid Colon, Percutaneous Endoscopic Approach (ICD-10-PCS; principal; 2019-01-02 11:30)
PROC: 0DJ08ZZ Inspection of Upper Intestinal Tract, Via Natural or Artificial Opening Endoscopic (ICD-10-PCS; 2019-01-02 11:30)
PROC: 0DJD8ZZ Inspection of Lower Intestinal Tract, Via Natural or Artificial Opening Endoscopic (ICD-10-PCS; 2019-01-02 11:30)
PROC: 02HV33Z Insertion of Infusion Device into Superior Vena Cava, Percutaneous Approach (ICD-10-PCS; 2019-01-02 11:30)
DX: K57.32 Diverticulitis of large intestine without perforation or abscess without bleeding (principal); E87.2 Acidosis; K56.600 Partial intestinal obstruction, unspecified as to cause; D69.6 Thrombocytopenia, unspecified; D64.9 Anemia, unspecified; E03.9 Hypothyroidism, unspecified; I95.89 Other hypotension; E83.51 Hypocalcemia; E88.09 Other disorders of plasma-protein metabolism, not elsewhere classified
CPT/HCPCS: 36600; 71045; 71275; 74177; 80048; 80053; 80076; 81001; 82150; 82728; 82803; 83540; 83605; 83690; 83735; 84100; 84439; 84443; 84484; 85014; 85018; 85025; 85049; 85378; 85610; 85670; 85730; 86850; 86900; 86901; 87040-91; 87081; 87086; 88307; 94002; 94003; 94770